=== PATIENT | female | born 1950 | race Hispanic/Latino ===

== ENCOUNTER → 2017-05-12 | Outpatient (CLI) | payer OTHER ==
[~2017-05-12] MED LIST: BIOT1CAP3 PO; CHOL50004 PO; DOXE6TAB3 PO; ENAL20TA PO; FISH1CAP63 PO; HYDR-85 PO; PROGESTERONE PO; bi-est TP
== END | disposition home or self-care (01) ==
LOC: RAH 15:46
PROVIDERS: ATTEND Family Medicine
DX: Z12.31 Encounter for screening mammogram for malignant neoplasm of breast (principal)
CPT/HCPCS: 77067

== ENCOUNTER → 2020-02-02 | Outpatient (CLI) | payer OTHER ==
[~2020-02-02] MED LIST changes: -ENAL20TA PO; +ENAL20TA18 PO
== END | disposition home or self-care (01) ==
LOC: RAH 15:23
PROVIDERS: ATTEND Family Medicine
DX: Z12.31 Encounter for screening mammogram for malignant neoplasm of breast (principal)
CPT/HCPCS: 77067

== ENCOUNTER → 2022-08-08 | Outpatient (CLI) | payer OTHER ==
[~2022-08-08] MED LIST changes: +ENAL-91 PO; -ENAL20TA18 PO; +HYDR-4339 PO; -HYDR-85 PO
== END | disposition home or self-care (01) ==
LOC: RAH 15:15
PROVIDERS: ATTEND Family Medicine
DX: Z12.31 Encounter for screening mammogram for malignant neoplasm of breast (principal)
CPT/HCPCS: 77067

== ENCOUNTER 2024-03-23 23:25 | Emergency (ER) | payer OTHER ==
[~2024-03-23] VITALS: Ht 157.5 cm; Wt 65.8 kg
--- NOTE | 2024-03-23 23:49 | ERN ---
General Chief Complaint: Abdominal Pain Stated Complaint: C/O LUQ PAIN RADIATING TO BACK Time Seen by MD: 23:29 Source: patient History of Present Illness Initial Comments PATIENT IS A 74-YEAR-OLD FEMALE, ANTERIOR EVALUATED FOR LEFT-SIDED ABDOMINAL PRASANNA N PAIN PATIENT STATES THAT THE PAIN HAS BEEN ONGOING FOR 2-3 WEEKS. SHE STATES THAT SHE IS CONSTIPATED BUT TAKES MEDICATION FOR THAT. NO FEVER NO CHILLS NO NAUSEA NO VOMITING. Allergies: Coded Allergies: No Known Drug Allergies (Verified Allergy, Unknown, 04/22/14) Home Meds Reported Medications [bi-est] No Conflict Check, 0.5 ML TP DAILY 04/22/14 Enalapril Maleate (Enalapril Maleate) 20 Mg Tablet, 20 MG PO DAILY, TAB 04/22/14 Fish Oil/Dha/Epa (Fish Oil 1,200 mg Fish Oil) 1 Each Capsule, 2 EACH PO DAILY, CAP 04/22/14 Biotin (Biotin) 1 Mg Capsule, 1 MG PO DAILY, CAP 04/22/14 Hydrocodone/Ibuprofen (Hydrocodone-Ibuprofen 7.5-200) 1 Each Tablet, 1 EACH PO BID PRN for PAIN, TAB 04/22/14 Cholecalciferol (Vitamin D3) 5,000 Unit Capsule, 5000 UNIT PO DAILY, CAP 04/22/14 Doxepin HCl (Silenor) 6 Mg Tablet, 6 MG PO HS, TAB 04/22/14 [progesterone cr] No Conflict Check, 125 MG PO HS 04/22/14 Past Medical History Past Medical History: High Cholesterol, Hypertension, Other Medical History Other: HX OF NEUROPATHY, HERNIATED DISCS, SCIATICA Past Surgical History: Other ROS Dictation CONSTITUTIONAL: NO CHILLS, NO FEVER, NO WEAKNESS, NO DIAPHORESIS, NO MALAISE. HEAD/FACE: NO SIGNS OF TRAUMA. EENT: NO EYE PAIN, NO BLURRED VISION, NO TEARING, NO DOUBLE VISION, NO EAR PAIN, NO EAR DISCHARGE, NO NOSE PAIN, NO NASAL CONGESTION, NO THROAT PAIN, NO TH ROAT SWELLING, NO MOUTH PAIN. RESPIRATORY: NO COUGH, NO ORTHOPNEA, NO SOB, NO STRIDOR, NO WHEEZING. CARDIOVASCULAR: NO CHEST PAIN, NO EDEMA, NO PALPITATIONS, NO SYNCOPE. GASTROINTESTINAL/ABDOMINAL: ABDOMINAL PAIN, CONSTIPATION, NO DIARRHEA, NO NAUSEA, NO VOMITING. GENITOURINARY: NO ABNORMAL DISCHARGE, NO DYSURIA, NO FREQUENT URINATION, NO HEMATURIA. NO COMPLAINTS OF PAIN IN THE GENITALS. MUSCULOSKELETAL: NO BACK PAIN, NO GOUT, NO JOINT PAIN, NO JOINT SWELLING, NO MUSCLE PAIN, NO MUSCLE STIFFNESS, NO NECK PAIN. INTEGUMENTARY: NO CHANGE IN COLOR, NO CHANGE IN HAIR/NAILS, NO DRYNESS, NO LESION, NO LUMPS, NO RASH. NEUROLOGICAL/PSYCH: NO ANXIETY, NOT DEPRESSED, NO EMOTIONAL PROBLEM, NO HEADACHE, NO NUMBNESS, NO PRE-EXISTING DEFICIT, NO HISTORY OF SEIZURES, NO TREMORS, NO WEAKNESS. HEMATOLOGIC/LYMPHATIC: NOT ANEMIC, NO HISTORY OF BLOOD CLOTS, NO APPARENT BLEEDING, NO BRUISING, GLANDS NOT SWOLLEN. ALL SYSTEMS NEGATIVE, EXCEPT NOTED. Physical Exam Physical Exam Dictation VITAL SIGNS: REVIEWED. GENERAL APPEARANCE: ALERT, ORIENTED X3, NO ACUTE DISTRESS, OBESE. HEAD AND FACE: NON-TRAUMATIC. EYES: PERRL, PINK CONJUNCTIVAS, EYELID NO TRAUMA, ANTERIOR CHAMBER CLEAR. EARS: PINNAS INTACT AND NO SIGNS OF TRAUMA OR ERYTHEMA. EAR CANALS CLEAR AND NO DISCHARGE. TMS NO ERYTHEMA. NOSE: NO DISCHARGE, NO BLEEDING. OROPHARYNX: MOUTH NORMAL, TEETH NO CARIES, TONGUE PINK. PHARYNX CLEAR, NO ERYTHEMA. TONSILS NO EXUDATES, NO ABSCESSES NOTED. MUCOUS MEMBRANE MOIST. NECK: SUPPLE, NON-TENDER, NO THYROMEGALY, NO MASSES, NO JVD, NO BRUITS. BREAST: DEFERRED. CHEST: NO TENDERNESS, NO CREPITUS, NO PARADOXICAL MOVEMENT, NO RETRACTIONS. LUNGS: CLEAR, WELL-VENTILATED, SYMMETRIC, NO RALES, NO WHEEZING, NO RHONCHI, NO STRIDOR, GOOD BREATH SOUNDS BILATERALLY. HEART: REGULAR RATE, REGULAR RHYTHM, NO MURMUR, NO GALLOPS. VASCULAR: NO PERIPHERAL EDEMA. ABDOMEN: SOFT, POSITIVE BOWEL SOUNDS, NONDISTENDED, NO GUARDING, LLQ TENDER, NO REBOUND, NO MASSES NO HEPATOMEGALY, NO SPLENOMEGALY, NO PARK'S SIGN, NO HERNIAS. RECTAL: DEFERRED. GENITAL: DEFERRED. NEUROLOGICAL: NORMAL SPEECH, GROSS MOTOR FUNCTION INTACT, GROSS SENSORY FUNCTION INTACT. MUSCULOSKELETAL: NECK NONTENDER, FULL RANGE OF MOTION, BACK NONTENDER, FULL RANGE OF MOTION. EXTREMITIES: NONTENDER, FULL RANGE OF MOTION. SKIN: COLOR PINK, DRY, NO TURGOR, NO RASH, NO LACERATIONS, NO ABRASIONS, NO CON TUSIONS. LYMPHATICS: DEFERRED. Results Laboratory and Microbiology Lab and Micro Result Laboratory Tests Test 03/23/24 23:32 03/23/24 23:48 Urine Color COLORLESS (YELLOW) Urine Appearance CLEAR (CLEAR) Urine pH 7.0 (5.0-8.0) Urine Specific [place] 1.003 (1.001-1.031) Urine Protein NEGATIVE mg/dL (NEGATIVE) Urine Glucose (UA) NEGATIVE mg/dL (NEGATIVE) Urine Ketones NEGATIVE mg/dL (NEGATIVE) Urine Occult Blood NEGATIVE (NEGATIVE) Urine Nitrate NEGATIVE (NEGATIVE) Urine Bilirubin NEGATIVE mg/dL (NEGATIVE) Urine Urobilinogen 0.2 mg/dL (0.2-1.0) Urine Leukocyte Esterase 25 Enrique/uL (NEGATIVE) H Urine RBC None /HPF (0-1) Urine WBC 2-5 /HPF (0-1) H Urine Amorphous Crystals (Auto) RARE /LPF (None Seen) Urine Bacteria None /HPF (None Seen) White Blood Count 6.1 K/uL (4.8-10.8) Red Blood Count 2.96 MIL/uL (4.00-5.50) L Hemoglobin 9.2 g/dL (12.0-16.0) L Hematocrit 28.7 % (36-48) L Mean Corpuscular Volume 97.0 fL (79-99) Mean Corpuscular Hemoglobin 31.1 pg (27.0-33.0) Mean Corpuscular Hemoglobin Concent 32.1 g/dL (32.0-36.0) Red Cell Distribution Width 12.3 % (11.0-15.5) Platelet Count 300 K/uL (130-400) Mean Platelet Volume 10.8 fL (7.5-10.5) H Immature Granulocyte % (Auto) 0.3 % (0-1) Neutrophils (%) (Auto) 66.6 % (40.0-77.0) Lymphocytes (%) (Auto) 16.6 % (21.0-51.0) L Monocytes (%) (Auto) 11.6 % (3.0-13.0) Eosinophils (%) (Auto) 4.6 % (0.0-8.0) Basophils (%) (Auto) 0.3 % (0.0-5.0) Neutrophils # (Auto) 4.1 K/uL (1.8-7.7) Lymphocytes # (Auto) 1.0 K/uL (1.0-4.8) Monocytes # (Auto) 0.7 K/uL (0.1-1.0) Eosinophils # (Auto) 0.28 K/uL (0.00-0.70) Basophils # (Auto) 0.02 K/uL (0.00-0.20) Absolute Immature Granulocyte (auto 0.02 K/uL (0-1) Nucleated Red Blood Cells 0.0 % (0.0-0.19) Sodium Level 137 mmol/L (136-145) Potassium Level 3.9 mmol/L (3.5-5.1) Chloride Level 100 mmol/L (101-111) L Carbon Dioxide Level 34 mmol/L (21-32) H Blood Urea Nitrogen 22 mg/dL (7-18) H Creatinine 1.0 mg/dL (0.5-1.0) Glomerular Filtration Rate Calc 60 mL/min (>90) Random Glucose 108 mg/dL (70-105) H Total Calcium 11.2 mg/dL (8.5-10.1) H EKG/XRAY/US/CT/[place] [address] IMAGING REPORT Signed PATIENT: JB GORE MR#: [id number] : 1950 SEX: F AGE: 74 LOCATION: [facility] ORDER 34 STATUS: REG REPORT#: [id number] SERVICE 233 REASON: LEFT LOWER QUDRANT PAIN ORDERING PHYSICIAN: TRISTAN BARAJAS MD PROCEDURE: ABD PEL WO - CT ABDOMEN/PELVIS W/O CONTRAST CT ABDOMEN/PELVIS W/O CONTRAST HISTORY: Left lower abdominal pain liver measured 15 cm. Gallbladder is contracted. COMPARISON: None TECHNIQUE: Multiple sequential axial images of the abdomen and pelvis were obtained from the dome of the diaphragm through symphysis pubis. Patient was not given contrast through intravenous route. Oral contrast was not given. FINDINGS: No pleural effusion is seen bilaterally. There is no evidence of parenchymal disease or pulmonary nodule of the visualized lower lungs. Degenerative changes of the thoracolumbar spine are present. The heart is not enlarged. The liver, spleen, adrenal glands and pancreas are unremarkable. No hydronephrosis is seen on the right. There is mild left hydronephrosis with 12 mm renal stone in the left UP junction. Small left renal pelvic stones are also seen. There is diverticulosis. Fecal material is seen in the colon. There are normal size retroperitoneal and mesenteric lymph nodes. No ascites is seen. Atherosclerotic changes are present. Appendix is not seen limiting evaluation. There is diverticulosis. Pelvic sidewalls are symmetric bilaterally. Bladder is poorly distended. IMPRESSION: 1. Mild left hydronephrosis with 12 mm renal stone in the left UP junction. CT was performed with one or more following dose reduction techniques: automated exposure control, adjustment of the mA and kv according to patient's size, or use of a iterative reconstruction technique. DICTATED BY: ALISA HARDEN MD DATE: 03/24/2429 ELECTRONICALLY SIGNED BY: ALISA HARDEN MD DATE: 03/24/2433 [facility] MDM: DIFFERENTIAL DIAGNOSIS: Kidney stone, nephrolithiasis, flank pain Patient has a signs he was seen, evaluated for left flank pain. On CT there is a 12 mm left kidney stone, but you P joint region. Because of the in the large stone and urology in a being here patient will be transferred to [facility]. Report given to ER MD we will take patient. ED Course Orders Procedure Category Date Status Time Cbc With Differential LAB 03/23/24 Complete 23:32 Basic Metabolic Panel LAB 03/23/24 Complete 23:32 Urinalysis LAB 03/23/24 Complete W/Microscopic 23:32 Ct Abdomen/Pelvis W/O CT 03/23/24 Resulted Contrast 23:33 Pantoprazole 40mg Inj PHA 03/24/24 Complete (Protonix 40mg Inj 00:00 0.9%Nacl 1000ml (Ns PHA 03/24/24 Complete 1000ml) 00:00 Ketorolac PHA 03/24/24 Complete Tromethamine 30mg/Ml 00:30 Tamsulosin Hcl PHA 03/24/24 Complete (Flomax) 00:30 Morphine 2mg Syg PHA 03/24/24 In Process (Morphine 2mg Syg) 02:00 Ondansetron 4mg Inj PHA 03/24/24 In Process (Zofran 4mg Inj) 02:00 Ceftriaxone 1g Vial PHA 03/24/24 In Process (Rocephine 1g Inj) 02:00 Current Medications Medications (Trade) Dose Ordered Sig/Jaycee Route PRN Reason Start Time Stop Time Status Last Admin Dose Admin Ceftriaxone Sodium (ROCEphine 1G INJ) 1 gm ONCE ONCE IVPB 03/24/24 02:00 03/24/24 02:01 Ketorolac Tromethamine (toRADol) 30 mg ONCE ONCE IVP 03/24/24 00:30 03/24/24 00:31 DC 03/24/24 00:27 Morphine Sulfate (morPHINE 2MG SYG) 2 mg ONCE ONCE IVP 03/24/24 02:00 03/24/24 02:01 Ondansetron HCl (zoFRAN 4MG INJ) 4 mg ONCE ONCE IVP 03/24/24 02:00 03/24/24 02:01 Pantoprazole Sodium (PROTonix 40MG INJ) 40 mg ONCE ONCE IVP 03/24/24 00:00 03/24/24 00:01 DC 03/24/24 00:03 Sodium Chloride 1,000 ml @ 0 mls/hr ONCE ONCE IV 03/24/24 00:00 03/24/24 00:01 DC 03/24/24 00:04 Tamsulosin HCl (FloMAX) 0.4 mg ONCE ONCE PO 03/24/24 00:30 03/24/24 00:31 DC 03/24/24 00:27 Vital Signs Date Time Temp Pulse Resp B/P (MAP) Pulse Ox O2 Delivery O2 Flow Rate FiO2 03/24/24 00:00 98.6 72 16 147/84 97 Room Air* 0 21 03/23/24 23:28 97.9 69 20 179/108 97 Room Air DX & DISP Disposition: Transfer Departure Impression: Primary Impression: Obstruction of ureteropelvic junction (UPJ) due to stone Additional Impression: UTI (urinary tract infection) Condition: Stable Referrals: LYNNETTE SNEED DO (PCP) TRISTAN BARAJAS MD Mar 23, 2024 23:49
[2024-03-23 23:59] LABS: BASOPHILS # (AUTO) 0.02 K/uL (0.00-0.20); BASOPHILS % (AUTO) 0.3 % (0.0-5.0); EOSINOPHILS # (AUTO) 0.28 K/uL (0.00-0.70); EOSINOPHILS % (AUTO) 4.6 % (0.0-8.0); HEMATOCRIT 28.7 % (36-48); IMMATURE GRANULOCYTE ABSOLUTE 0.02 K/uL (0-1); LYMPHOCYTES % (AUTO) 16.6 % (21.0-51.0); MEAN CORPUSCULAR HEMOGLOBIN 31.1 pg (27.0-33.0); MEAN CORPUSCULAR HGB CONC 32.1 g/dL (32.0-36.0); MONOCYTES # (AUTO) 0.7 K/uL (0.1-1.0); MONOCYTES % (AUTO) 11.6 % (3.0-13.0); NEUTROPHILS # (AUTO) 4.1 K/uL (1.8-7.7); NEUTROPHILS % (AUTO) 66.6 % (40.0-77.0); PLATELET COUNT (AUTO) 300 K/uL (130-400); RED BLOOD CELL COUNT(AUTO) 2.96 MIL/uL (4.00-5.50); RED CELL DISTRIBUTION WIDTH 12.3 % (11.0-15.5); WHITE BLOOD COUNT (AUTO) 6.1 K/uL (4.8-10.8)
[2024-03-24 00:02] LABS: APPEARANCE,URINE CLEAR (CLEAR); BILIRUBIN,URINE NEGATIVE (NEGATIVE); COLOR,URINE COLORLESS (YELLOW); GLUCOSE, URINE (UA) NEGATIVE (NEGATIVE); KETONES,URINE NEGATIVE (NEGATIVE); LEUKOCYTE ESTERASE ,URINE 25 Leu/uL (NEGATIVE); NITRATE,URINE NEGATIVE (NEGATIVE); OCCULT BLOOD,URINE NEGATIVE (NEGATIVE); PROTEIN,URINE NEGATIVE (NEGATIVE); UROBILINOGEN,URINE 0.2 mg/dL (0.2-1.0)
[2024-03-24] MEDS: PANTOPrazole 40 MG/VIAL IVP ONE (00:03)
[2024-03-24] MEDS: 0.9%NACL 1000ML 1,000 ML IV ONE (00:04)
[2024-03-24 00:08] LABS: POTASSIUM 3.9 mmol/L (3.5-5.1)
[2024-03-24 00:18] LABS: MUCUS,URINE RARE LPF (None Seen)
[2024-03-24] MEDS: ketOROlac 30MG VIAL (30MG/ML) IVP ONE (00:27)
[2024-03-24] MEDS: tamSULOsin HCL 0.4 MG CAP.ER.24H PO ONE (00:27)
--- NOTE | 2024-03-24 00:34 | HMCIMG ---
CT ABDOMEN/PELVIS W/O CONTRAST HISTORY: Left lower abdominal pain liver measured 15 cm. Gallbladder is contracted. COMPARISON: None TECHNIQUE: Multiple sequential axial images of the abdomen and pelvis were obtained from the dome of the diaphragm through symphysis pubis. Patient was not given contrast through intravenous route. Oral contrast was not given. FINDINGS: No pleural effusion is seen bilaterally. There is no evidence of parenchymal disease or pulmonary nodule of the visualized lower lungs. Degenerative changes of the thoracolumbar spine are present. The heart is not enlarged. The liver, spleen, adrenal glands and pancreas are unremarkable. No hydronephrosis is seen on the right. There is mild left hydronephrosis with 12 mm renal stone in the left UP junction. Small left renal pelvic stones are also seen. There is diverticulosis. Fecal material is seen in the colon. There are normal size retroperitoneal and mesenteric lymph nodes. No ascites is seen. Atherosclerotic changes are present. Appendix is not seen limiting evaluation. There is diverticulosis. Pelvic sidewalls are symmetric bilaterally. Bladder is poorly distended. IMPRESSION: 1. Mild left hydronephrosis with 12 mm renal stone in the left UP junction. CT was performed with one or more following dose reduction techniques: automated exposure control, adjustment of the mA and kv according to patient's size, or use of a iterative reconstruction technique.
[2024-03-24] MEDS: ondanSETRON 4MG INJ IVP ONE (01:45)
[2024-03-24] MEDS: morPHINE 2 MG SYG IVP ONE (01:45)
[2024-03-24] MEDS: cefTRIAXone 1G VIAL IVPB ONE (01:45)
--- NOTE | 2024-03-24 02:27 | NUR ---
ER-ER REPORT GIVEN TO ASHLEE MILAN AT [facility].
[2024-03-24 04:09] VITALS: BP 153/49; PULSE 68; RESP 16; TEMP 98.6; O2SAT 98
== END 2024-03-24 04:09 | disposition short-term general hospital (02) ==
LOC: EDH 23:25
DX: N13.1 Hydronephrosis with ureteral stricture, not elsewhere classified (principal); N39.0 Urinary tract infection, site not specified; E78.00 Pure hypercholesterolemia, unspecified; I10 Essential (primary) hypertension; Z79.899 Other long term (current) drug therapy
CPT/HCPCS: 99285; 74176; 80048; 85025; 81001; 36415; 96365; 96375; J2270; J7030; J0696; J2405; J1885; J2470

== ENCOUNTER → 2025-01-20 | Outpatient (CLI) | payer OTHER | END | disposition home or self-care (01) | LOC: RAH 15:13 | PROVIDERS: ATTEND Family Medicine | DX: Z12.31 Encounter for screening mammogram for malignant neoplasm of breast (principal) | CPT/HCPCS: 77067 ==